=== PATIENT | female | born 1945 | race Caucasian/White ===

== ENCOUNTER 2017-04-04 16:30 | Inpatient (IN) | payer MEDICARE, OTHER ==
[~2017-04-04] VITALS: Ht 162.6 cm; Wt 76.4 kg
--- NOTE | ~2017-04-04 | HP ---
PATIENT'S NAME: BHASKAR HOLBROOK [facility] AGE: 71 Y [address] ROOM: [place] [address] LOCATION: [facility] ADMIT DATE: 04/04/2017 History & Physical DISCHARGE DATE: FAMILY PHYSICIAN: PHYSICIAN, UNKNOWN ATTENDING PHYSICIAN: Nacho BERNAL DATE OF SERVICE: CHIEF COMPLAINT: Right upper extremity weakness. HISTORY OF PRESENT ILLNESS: The patient is a 71-year-old female with past medical history of diabetes mellitus type 2, hypertension, and current tobacco use, who presents here from [place], [place] with CVA. The patient reports that around 10:30 this morning, she was watching TV when she suddenly felt her right hand to be numb. She also noticed that her hands were weak and could not grab items. She called her for help. Subsequently, she noticed right-sided facial weakness and numbness. The patient's saw her and suggested that they need to go to the emergency department. The patient reports that she stood up by herself and walked to the car and went to the emergency department. At the the emergency department, the patient was evaluated and had a CT of the head, that showed 6 mm focus of decreased density in the left frontal lobe and left external capsule suspicious for ischemic changes but age was indeterminate. It did not show any intracranial hemorrhage. Tele-neurology was consulted. Dr. Tubbs was on board. After the assessment, the patient was not a candidate for tPA and was transferred to our facility for further workup. The patient reports that the last time she was seen normal by her was 2:00 a.m. yesterday evening. MEDICAL HISTORY: 1. Diabetes mellitus type 2. 2. Hypertension. 3. Restless legs syndrome. 4. Hyperlipidemia. 5. Tobacco use. SURGICAL HISTORY: Cholecystectomy, appendectomy, tonsillectomy. FAMILY HISTORY: Dad has Alzheimer. Mother has heart disease. SOCIAL HISTORY: The patient is a current smoker since age 24. She denies drinking and PATIENT'S NAME: BHASKAR HOLBROOK [facility] AGE: 71 Y [address] 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 MEDICATIONS: Please see MAR and is currently being reconciled. REVIEW OF SYSTEMS: All systems have been reviewed and are negative except for what is mentioned in the HPI. PHYSICAL EXAMINATION: VITAL SIGNS: Temperature of 98 degree Fahrenheit, blood pressure of 168/80 with pulse 78, respiratory rate of 18, and saturating 95% on room air. GENERAL APPEARANCE: The patient is alert and awake, in no acute distress, lying on the bed surrounded by family member. HEAD: Normocephalic, atraumatic. EYES: Extraocular muscle intact. No peripheral visual deficits. NOSE: No nasal discharge. EARS: No ear discharge. ORAL CAVITY: Moist oral cavity. NECK: No JVD. No carotid bruits heard. CHEST: Clear to auscultation bilaterally. HEART: Regular rate and rhythm. No murmurs, rubs, or gallops heard. ABDOMEN: Soft, nontender, and nondistended. Bowel sounds present. SKIN: Warm to touch. MUSCULOSKELETAL: Range of motion intact. No obvious joint effusion noted. PLASTERING CONTRACTOR: The patient is alert and oriented x3. The patient has right-sided nasolabial fold flattening. Motor strength of right upper extremity 3/5. Motor strength in lower extremity bilateral 5/5. LABORATORY DATA: White blood cell count of 10, hemoglobin of 14, platelet of 220. Sodium of 130, potassium 4.2, creatinine of 1, and blood glucose of 24. This data was received from [facility]. EKG shows, this is also from outside hospital, sinus rhythm, normal axis, ventricular rate of 85 with PA of 132, and QTc of 19. No ischemic ST and T- wave changes. ASSESSMENT AND PLAN: 1. Acute ischemic CVA. The patient is a 71-year-old female with past medical history of hypertension, diabetes mellitus type 2, and tobacco use, who presents here with 6 mm focus left frontal lobe and left external capsule suspicion for ischemic stroke. The patient initially was seen by tele-neuro at [facility]. The patient was deemed not to be a tPA candidate due to therapeutic window and also positive CT head PATIENT'S NAME: BHASKAR HOLBROOK [facility] AGE: 71 Y [address] ROOM: [address] [place] [address] LOCATION: [facility] ADMIT DATE: 04/04/2017 History & Physical DISCHARGE DATE: FAMILY PHYSICIAN: PHYSICIAN, UNKNOWN ATTENDING PHYSICIAN: Nacho BERNAL suspicion to be stroke to be age indeterminate. We will admit the patient. We will acquire MRI brain without contrast, MRA brain without contrast, and we will acquire carotid Doppler bilateral. We will also acquire echocardiogram. The patient's initial NIH score is 4. We will have bedside swallow eval and also speech therapy. We will also have PT and OT see the patient during her stay. The patient has not gotten aspirin yet. We will start the patient on full-dose aspirin and 81 mg aspirin daily afterwards. Change home medication of simvastatin to full dose, Lipitor of 80 mg daily. We will keep the patient on telemonitor to further assess for arrhythmia. We will also re-consult Dr. Tubbs with tele-neuro. 2. Hypertension. We will hold medication as we will allow permissive hypertension for 24 hours. To treat blood pressure with labetalol as needed if systolic blood pressure is greater than 220 and diastolic blood pressure is greater than 120. 3. Hyperlipidemia. We will change the patient's statin regimen to high-dose Lipitor. 4. History of restless legs syndrome. We will continue Requip. 5. Diabetes mellitus type 2. We will acquire hemoglobin A1c. We will hold metformin for now. We will have the patient on sliding scale insulin. We will start the patient on diabetic diet. 6. Tobacco use. A long discussion made about tobacco cessation. Discussed greater than 3 minutes about tobacco cessation. Offered nicotine. The patient is currently not ready for cessation. We will add nicotine as needed for tobacco use. I have personally reviewed the patient's medical record including but not limited to blood work and radiology report. Total time spent with the patient is greater than 70 minutes, more than 50% of the time is spent in direct the patient's care and the patient's' consultation. Case was reviewed with the patient, nursing staff, and family member. Questions were answered to the patient's satisfaction. We will admit the patient for CVA, and we will have a stroke workup. Code status on admission is full code. GABE ROOT MD AD/modl /[id number] D: [id number] T: [id number] HISTORY & PHYSICAL
--- NOTE | ~2017-04-04 | ENPV ---
Carotid Duplex Study Demographics Patient Name BHASKAR HOLBROOK Date of Study 04/05/2017 Patient Number [id number] Gender Female Date of 1945 Age 71 Visit Number [id number] Height 61 Accession Number [id number] Weight 165 Referring Valerie Valenzuela MD Physician Physician Physician Ordering Physician Valerie Griffith Wind Turbine Service Technician Surgical Instrument Repair Specialist Juancarlos Azevedo BS, RT Conclusions Summary The right internal carotid artery has mild, 1-39%, plaque and stenosis. The left internal carotid artery has mild, 1-39%, plaque and stenosis. The right vertebral artery is present with antegrade flow. The left vertebral artery is present with antegrade flow. Calcific plaque at the bulb bilaterally. Procedure Type of Study: Cerebral:Carotid, Carotid Doppler Bilateral. Indications for Study:Stroke. Appropriate Use Criteria:9 Patient Status:Routine. Study Location:Inpatient Portable. Technical Quality:Adequate visualization. Velocities are measured in cm/s ; Diameters are measured in cm Carotid Right Measurements Carotid Left Measurements + +--------+--------+ + + + +--------+ --------+ + + !Location !PSV !EDV !Angle !%Stenosis ! !Location !PSV ! EDV !Angle !%Stenosis ! + +--------+--------+ + + + +--------+ --------+ + + !Prox CCA !72 !16 !60 ! ! !Prox CCA !72 ! 15 !60 ! ! + +--------+--------+ + + + +--------+ --------+ + + !Dist CCA !62 !17 !60 ! ! !Dist CCA !58 ! 15 !60 ! ! + +--------+--------+ + + + +--------+ --------+ + + !Prox ICA !64 !15 !60 ! ! !Prox ICA !52 ! 16 !60 ! ! + +--------+--------+ + + + +--------+ --------+ + + !Dist ICA !61 !22 !60 ! ! !Dist ICA !71 ! 25 !60 ! ! + +--------+--------+ + + + +--------+ --------+ + + !Prox ECA !69 ! !60 ! ! !Prox ECA !101 ! !60 ! ! + +--------+--------+ + + + +--------+ --------+ + + !Vertebral !32 ! !60 ! ! !Vertebral !50 ! !60 ! ! + +--------+--------+ + + + +--------+ --------+ + + !Subclavian !64 ! !60 ! ! !Subclavian !108 ! !60 ! ! + +--------+--------+ + + + +--------+ --------+ + + - There is antegrade vertebral flow noted on the right side. - There is antegrade verte bral flow noted on the left side. - Add'l Measurements:ICAPSV/CCAPSV 0.9.ICAEDV/CCAEDV 1.38. - Add'l Measurements:ICAPS V/CCAPSV 0.98.ICAEDV/CCAEDV 1.68. Signature dtt: Juan Fuller dtd: 04/05/17 0916 Physician Self Edit
--- NOTE | ~2017-04-04 | ECHO ---
Transthoracic Echocardiography Report (TTE) Demographics Patient Name BHASKAR HOLBROOK Date of Study 04/05/2017 Patient Number [id number] Visit Number [id number] Date of 1945 Room Number G6228 Accession Number [id number] Gender Female Age 71 year(s) Referring Valerie Griffith Forklift Supervisor Em Byrd RVT, Physician PERLA Physician Interpreting Deshawn Anand Inpatient Pharmacist Physician MD Supervising Ordering Physician Valerie Griffith MD/MLP Nurse Stress Gun Examiner Conclusions Contractility Score Summary Normal Left Ventricular contractility was noted. Summary The estimated left ventricular ejection fraction is 55% with normal WM and internal dimension.Definity used to better delineate endocardial borders.Mild concentric left ventricular hypertrophy. Mild mitral regurgitation by color Doppler. There is no evidence of patent foramen ovale or atrial septal defect by color Doppler. Bubble study was done, there is no evidence for a PFO or ASD. Mild MR. Aortic sclerosis. TDS. Procedure Type of Study TTE procedure:2D Echocardiogram, Echo with Contrast. Procedure Date Date: 04/05/2017 Start: 11:32 AM Study Location: Inpatient Portable Technical Quality: Fair due to poor acoustical window. Indications:CVA. Appropriate Use Criteria: 8 Patient Status: Routine Contrast Medium: Definity. Amount - 3 ml Rhythm: NSR HR: 86 bpm BP: 194/90 mmHg M-Mode/2D Measurements LV Diastolic Dimension: 4.69 cm LV Systolic Dimension: 4.05 cm LV Septum Diastolic: 1.25 cm LV PW Diastolic: 1.16 cm AO Root Dimension: 2.9 cm Cardiac Output: 5.93 l/min LA Dimension: 3.4 cm EF Estimated: 55 % LVOT: 2.3 cm LVOT VTI: 16.6 cm RV Base: 2.29 cm LV Stroke volume: 68.93 ml RV Length: 6.89 cm TAPSE: 1.88 cm TDI-S': 10.6 cm/s Doppler Measurements AV Peak Velocity: 1.55 m/s MV Peak E-Wave: 0.67 m/s AV Peak Gradient: 9.61 mmHg MV Peak A-Wave: 1.21 m/s AV Mean Gradient: 6 mmHg MV E/A Ratio: 0.55 LVOT Peak Velocity: 0.88 m/s MV P1/2t: 81 msec TR Gradient:9.24 mmHg PV Peak Velocity: 0.97 m/s Estimated RAP:5 mmHg PV Peak Gradient: 3.76 mmHg Estimated RVSP: 14 mmHg Estimated PASP: 14.24 mmHg E' Septal Velocity: 0.04 m/s A' Septal Velocity: 0.1 m/s E' Lateral Velocity: 0.06 m/s A' Lateral Velocity: 0.18 m/s Findings Left Ventricle Mild concentric left ventricular hypertrophy with normal EF,internal dimension and WM. Right Ventricle Normal right ventricle structure and function. Left Atrium The left atrium is normal. There is no evidence of patent foramen ovale or atrial septal defect by color Doppler. Bubble study was done, there is no evidence for a PFO or ASD. Right Atrium Normal right atrial size. IVC measures 1.35 cm with inspiratory collapse. Mitral Valve Mild mitral regurgitation by color Doppler. Aortic Valve The aortic valve is mildly sclerotic. Tricuspid Valve Normal tricuspid valve structure and function. Pulmonic Valve Normal pulmonic valve structure and function. Pericardial Effusion No evidence of pericardial effusion. Miscellaneous Visualized portions of the aortic root and ascending aorta appear normal in size. Pleural Effusion No evidence of pleural effusion. Contractility Score LV regional wall motion:(0-Non visualized 1-Normal 2-Hypokinesis 3-Akinesis 4-Dyskinesis 5-Aneurysm) Signature dtt: Kika Hess dtd: 04/05/17 1132 Physician Self Edit
--- NOTE | ~2017-04-04 | DS ---
PATIENT'S NAME: BHASKAR HOLBROOK [facility] AGE: 71 Y [address] ROOM: [place] [address] LOCATION: [facility] ADMIT DATE: 04/04/2017 Discharge Summary DISCHARGE DATE: 04/08/2017 FAMILY PHYSICIAN: Nidhi Saeed MD ATTENDING PHYSICIAN: Nacho BERNAL PRIMARY DIAGNOSES: 1. 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 2. Diabetes mellitus type 2. 3. Essential hypertension. 4. Dyslipidemia. OPERATIONS/PROCEDURES: MRI and MRA of the brain were performed 04/05/2017 demonstrating acute and/or subacute ischemic infarct in the left MCA territory and a small subcortical infarct in the right parietal lobe. Echocardiogram was obtained 04/05/2017 demonstrating an ejection fraction 55%. No evidence of PFO. Carotid Doppler ultrasounds were obtained 04/05/2017 demonstrating no significant stenosis. HISTORY OF PRESENT ILLNESS/REASON FOR ADMISSION: Please refer to the H and P dictated 04/04/2017. HOSPITAL COURSE: The patient was admitted to hospital as noted above with presumptive diagnosis of left MCA stroke symptoms. She was placed on the stroke pathway. She received aggressive antihyperlipidemic therapy with atorvastatin. Teleneurology was consulted. She was switched from aspirin to Plavix and tolerated that well. Her clinical symptoms improved. She had Physical Therapy, Occupational Therapy, and Speech Therapy evaluations. Physiatry also was consulted. Symptoms continued to improve and some consideration was given for inpatient rehab. By the end of the 4th day of her hospital stay, it was felt she would be stable enough for discharge home with outpatient physical therapy and plans for clinical followup with a primary care provider. DISCHARGE INSTRUCTIONS: DIET: Cardiac, prudent as tolerated. ACTIVITY: As tolerated. MEDICATIONS: 1. Atorvastatin 80 mg p.o. daily. 2. Plavix 75 mg p.o. daily. 3. Cardura 4 mg p.o. daily. PATIENT'S NAME: BHASKAR HOLBROOK [facility] AGE: 71 Y [address] ROOM: [place] [address] LOCATION: [facility] ADMIT DATE: 04/04/2017 Discharge Summary DISCHARGE DATE: 04/08/2017 FAMILY PHYSICIAN: Nidhi Saeed MD ATTENDING PHYSICIAN: Nacho BERNAL 4. Losartan 50 mg p.o. daily. 5. Fentanyl patch 25 mcg apply and change q.72 hours. 6. Gabapentin 600 mg p.o. q.4 hours p.r.n. dysesthesias. 7. Multivitamin daily. 8. Nicotine patch 21 mg apply and change daily. Do not smoke. 9. Oxycodone 5/325 one tab p.o. q.8 hours p.r.n. pain. 10. Clonidine 0.1 mg p.o. daily p.r.n. 11. [place] 5/325 one tab p.o. q.4 hours p.r.n. pain. 12. Flexeril 10 mg p.o. q.i.d. 13. Lasix 20 mg p.o. at bedtime. 14. Ropinirole 2 mg p.o. at bedtime. 15. Calcium carbonate 1 to 2 tabs p.o. b.i.d. p.r.n. 16. Metformin 2000 mg p.o. at bedtime. 17. Meclizine 25 mg p.o. q.6 hours p.r.n. dizziness. FOLLOWUP: She will follow up with Dr. Saeed on 04/14/2017. CONDITION ON DISCHARGE: Fair. Total time spent on discharge process 45 minutes. MD ELE KEITH/radha /[id number] d: 04/21/17 0354 t: 05/01/17 2359, DISCHARGE SUMMARY
--- NOTE | ~2017-04-04 | CON ---
PATIENT'S NAME: SHERLEY CERNA [facility] AGE: 71 Y [address] ROOM: [address] [address] LOCATION: [facility] ADMIT DATE: 04/04/2017 Consultation DISCHARGE DATE: FAMILY PHYSICIAN: PHYSICIAN, UNKNOWN ATTENDING PHYSICIAN: Nacho BERNAL DATE OF CONSULTATION: 04/05/2017 REFERRING PHYSICIAN: CHELSEA BUCKLEY MD REASON FOR CONSULTATION: Stroke. HISTORY OF PRESENT ILLNESS: Sherley Cerna is a 71-year-old woman with history of hypertension and hyperlipidemia, who presented with transient right arm and face weakness and slurred speech yesterday. She was found to have an ischemic stroke on her MRI. Her MRA was negative. A carotid and echocardiogram are pending. She was on aspirin prior to arrival. As per the patient, her symptoms have improved, and she is working with Therapy. Currently, her neurologic exam has improved since admission. PHYSICAL EXAMINATION: NEUROLOGICAL: She is awake, alert, and oriented. Her speech is fluent. There is no dysarthria. She is able to answer all questions correctly. She is able to follow commands. Her extraocular movements were intact. Her visual jordan were full. She had a slight flattening of her nasolabial fold on the right. On motor exam, she was 5/5 strength without any drift in any of her extremities. She did have some slowing in her rapid alternating movements in her right hand. Sensation was diminished on the right. There was no ataxia. There was no extinction. Her NIH Stroke Scale score was 2. ASSESSMENT AND PLAN: Ischemic stroke. Carotid and echocardiogram are pending. If these results do not show any acute or critical pathology, the patient is okay to be discharged on Plavix as well as her statin. She will need followup with Outpatient Neurology in 1 to 2 weeks after she is discharged. MD ZACK AGUILERA/radha PATIENT'S NAME: SHERLEY CERNA [facility] AGE: 71 Y [address] ROOM: [address] [place], [place] [address] LOCATION: [facility] ADMIT DATE: 04/04/2017 Consultation DISCHARGE DATE: FAMILY PHYSICIAN: BARRY LEON ATTENDING PHYSICIAN: Nacho BERNAL /[id number] d: 04/05/171957 t: 04/06/17 1325, CONSULTATION REPORT
--- NOTE | ~2017-04-04 | CON ---
PATIENT'S NAME: BHASKAR HOLBROOK [facility] AGE: 71 Y [address] ROOM: [place] [address] LOCATION: [facility] ADMIT DATE: 04/04/2017 Consultation DISCHARGE DATE: FAMILY PHYSICIAN: Nidhi Saeed MD ATTENDING PHYSICIAN: Nacho PADILLA REFERRING PHYSICIAN: CHELSEA BUCKLEY MD Consult for Dr. Padilla, hospitalist. This pleasant 71-year-old lady is referred for rehab evaluation, admitted on 04/04, transferred from [place], [place] for definitive care with sudden onset of right upper extremity weakness, right facial droop, and slight slurring of speech with right facial numbness of sudden onset also. PAST MEDICAL HISTORY: Past history of significance as follows, 1. Diabetes type 2. 2. Hypertension. 3. Restless legs syndrome. 4. Dyslipidemia. 5. Tobacco abuse. Now, she is alert and oriented. Voice is clear and not wet. No visual cut and/or neglect. She still has right facial weakness. No headaches. Tongue and soft palate however moving symmetrical. No visual cut at the present time. Vitals are as follows, Blood pressure 199/93, temperature 98.7, pulse 82 and regular, respiration rate is 16. She is 5 feet 4 inches tall and weighs 75.9 kg. No dizziness, no nystagmus. Denied any nausea. No swallowing difficulty. No fever, no shortness of breath, no chest pain, no other discomfort. No similar episodes in the past. Now, she is able to move her right upper extremity; however, distally she is weak and discoordinated, especially the hand movement and fingers. Deep tendon reflexes are present and equal throughout. Good bowel and bladder control. She is on the following medications, 1. Plavix. 2. Requip. 3. Neurontin. 4. Theragran-M. 5. Rogers. PATIENT'S NAME: BHASKAR HOLBROOK [facility] AGE: 71 Y [address] ROOM: [place] [address] LOCATION: [facility] ADMIT DATE: 04/04/2017 Consultation DISCHARGE DATE: FAMILY PHYSICIAN: Nidhi Saeed MD ATTENDING PHYSICIAN: Nacho PADILLA 6. Tums. 7. Fentanyl. 8. Glucagon. 9. Glucose. 10. Dextrose. 11. Insulin. 12. Insulin aspart, mild. 13. Labetalol. 14. Percocet. 15. NaCl 0.9%. 16. Lipitor. 17. Protonix. 18. Aspirin. 19. Gabapentin. ASSESSMENT AND PLAN: She can ambulate at least 150 with hand-held and close supervision; however, she has made very good recovery and she has been initiated on PT, OT, and Speech which I will continue. At the present time, I feel she has made good progress. If she continues like this, she in my opinion can go on outpatient basis and follow with her family physician which she likes to do so; however, if she does not do well, I am happy to take her for intensive rehabilitation for about 2 weeks. If she continues to do well, she can go on outpatient basis. I did explain all that to her in detail. She verbalized understanding and agreement. Thank you for this referral. However I have told her not to smoke and also not to drive until she is re-evaluated. She verbalized understanding and agreement. MD MILAN GARRETT/radha /[id number] d: 04/06/17 1421 t: 04/06/17 1444, CONSULTATION REPORT
[2017-04-04] MEDS ORDERED: CATAPRES0.1 MG PO (20:39)
[2017-04-04] MEDS ORDERED: LORTAB 5-325 M1 EACH PO (20:39)
[2017-04-04] MEDS ORDERED: DURAGESIC 25MC25 MCG TRANS (20:40)
[2017-04-04] MEDS ORDERED: FLEXERIL10 MG PO (20:40)
[2017-04-04] MEDS ORDERED: NEURONTIN600 MG PO (20:41)
[2017-04-04] MEDS ORDERED: LASIX20 MG PO (20:42)
[2017-04-04] MEDS ORDERED: REQUIP2 MG PO (20:42)
[2017-04-04] MEDS ORDERED: CARDURA4 MG PO (20:42)
[2017-04-04] MEDS ORDERED: COZAAR50 MG PO (20:43)
[2017-04-04] MEDS ORDERED: COZAAR100 MG PO (20:43)
[2017-04-04] MEDS ORDERED: THERAGRAN-M1 TAB PO (20:43)
[2017-04-04] MEDS ORDERED: TUMS REGULAR ST1 TAB PO (20:44)
[2017-04-04] MEDS ORDERED: ASPIRIN325 MG PO (20:44)
[2017-04-04] MEDS ORDERED: METFORMIN HCL1000 M1 PO (20:45)
[2017-04-04] MEDS ORDERED: MECLIZINE HCL25 M1 PO (20:45)
[2017-04-04] MEDS ORDERED: ZOCOR40 MG PO (20:45)
--- NOTE | 2017-04-05 02:05 | NUR ---
Patient was at home this morning (10 am [place] time) when she started to experience numbness in the right arm. She continued to watch T.V. for a bit and then decided to call her , told her she needed to go to the doctor. Patient called PCP and was told that she needed to go to the hospital. Arrived to the ER around 12:30 ([place] time) with right sided arm weakness, no right hand grasp, and right facial droop. R) pupils is 2mm and sluggish, L) is 3mm and brisk. A/Ox3. Follows commands. Mild slurred speech. CT done in [facility]. Patient arrived to the unit at 1815 per cart with Flight nurses. 2L of O2 per nasal cannula. 78-95%/2L-168/80-18-98.0-0/10. PIV in right AC. Received report from flight nurse Breonna.
--- NOTE | 2017-04-05 05:16 | NUR ---
Significant Event:Patient is alert and oriented x3. Follows commands. VSS. PERRLA. Generalized RENEE-scheduled percocet given at 0440. 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 Does have numbness to the right hand and right portion of face. No right hand grasp-does move hand at the wrist. R) arm drift. Mild slurred speech. R)facial droop.Sinus rhythm-does get SOB with activity. 2+ pulses-no edema. Keep SBP less than 220 and DBP less than 120. Room air to 2L to keep sats greater than 94%. Non-productive smokers cough. DM2-ADA diet-accu checks ACHS-mild sliding scale call MD if BS is greater than 180. Last BM 04/04-active x4. 1A gb/walker. PIV in left AC-sl'd. Follow up: Had EKG 04/04. 04/05 will have MRI/MRA of the brain not contrast.
--- NOTE | 2017-04-05 08:39 | NUR ---
CONSULT RECEIVED, PER ROUTINE STROKE ORDERS. IF APPROPRIATE, DIET EDUCATION WILL BE COMPLETED PRIOR TO DISMISSAL.
--- NOTE | 2017-04-05 11:41 | NUR ---
Reviewed Carlotta' chart and talked with nursing. Per her chart and records, she lives at home in [place], [place] with her who is a practice management consultant. She was at home getting around fine prior to coming into us. I tried to stop by and talk with her this morning but PT was working with her at [address] was working with her at 1040. I will stop back by and see her later las well as check with therapies to see what they recommend for her needs upon dismissal, home vs SWB for a short time. CM to continue to follow and assist.
--- NOTE | 2017-04-05 14:25 | NUR ---
Significant Event: A/O X3. R) facial droop. R) arm drift. Mild slur. PERRLA. Chronic N/T to bilateral feet, R) numbness to hand and cheek. VSS. No edema. 2+ pulses. Room air with sats in the mid 90s. LS clear and diminsihed. Diabetic diet. Accuchecks ACHS with SSI. No coverage needed. BS active X4. Voids per bathroom. No apparent skin issues. L) AC PIV SLL. FLushes with no complications. 1 assist with gaitbelt and walker. Scheduled pain medications given this shift. Awaiting results of tests at this time. Follow up:
--- NOTE | 2017-04-06 02:16 | NUR ---
Significant Event: Alert and Oriented x3. R) hand grasp weak. R) arm weaker than left but no drift. R) arm numb and tingling. R) facial droop and R) sided numbness. Mild slurring. PERRLA. NIHSS 4. Up 1A GBW. On tele SR. Blood pressure hyptertensive in SBP in 190s order to give meds if >220. RA lungs clear. Diabetic diet Accuchecks AC/HS mild scale. IV to L) AC SL. On scheduled percocet for pain has Fentanyl patch on L) upper back for chronic pain. Follow up:
--- NOTE | 2017-04-06 12:33 | NUR ---
Introduced self and CM role to Sherley, her and her brother who were all at bedside. Sherley tells me that she was living at home in [place], [place] getting around fine prior to all of this, and is planning on getting back there when she is able to do so. She tells me that she does all of her own medications at home, around 10 pills per day, she gets them filled at her local [place] [facility]. She tells me that her PCP is Dr.Lauri Mcgee out of [place] as well. Sherley plans on returning home and doing outpatient therapies as soon as doctors tell her she is ready to do so. states that he will be there as support to help her out and her brother is also near by if she should need anything. She is planning on going to stay with her daughter here in town for a few days post hospital stay so she can be close to her doctors here incase anything should go wrong. She plans on returning home middle of next week and then setting up her outpatient follow up appointments at [facility] at that time. If she needs a short supply of her medications filled, she will just have that done at the local [facility] pharmacy. Sherley and family deny any other questions, needs or concerns. CM to continue to follow and assist. Plan home with outpatient therapies.
--- NOTE | 2017-04-06 17:23 | NUR ---
Significant Event:VSS, restarted on Losartan 50mg. Pt A/O x 3, PEERL no facial droop noted, speech clear, continues with RUE weakness, no drift. RLE slightly weaker, therapist indicated she is stronger than yesterday. NIHSS 2. Pt reports hx of chronic pain of 3-4/10, scheduled meds given, Fentanyl patch to L upper back. IV to L AC SL. Continues with ACHS, mild scale, no coverage needed. Participated in therapies. Follow up: Possible DC to home 04/07 with therapies.
--- NOTE | 2017-04-07 05:14 | NUR ---
Significant Event: A&Ox3. NIHSS 2 due to Numbness to R) arm and R) side of face and weak hand grasp to R). Up 1A GBW. On tele SR. Runs hypertensive in 180s. RA lungs clear. Diabetic diet. Accuchecks AC&HS. IV to L) AC SL. Takes pills 1 at a time. On scheduled Percocet and has Fentanyl patch for chronic pain. Follow up: Home today
--- NOTE | 2017-04-07 17:21 | NUR ---
Significant Event:VSS, BP normalizing by 1500 assessments. Pt c/o occipital headache 06/15, [place] 1 tab at 0850, and scheduled meds given. Pt reported pain controlled / by midafternoon. R hand numbness, and slight difficulties picking up silverware. Worked with therapies. TIFFANY RAINES. Started on Metformin 1000mg BID. Refused Nicotine patch. Follow up:Possible DC to daughters' home tommorrow.
--- NOTE | 2017-04-08 01:34 | NUR ---
Significant Event: A/Ox3. VSS. Takes scheduled Percocet for pain which is scheduled again this am at 0415. ACHS accuchecks with s/s insulin and oral metformin. IV to L)AC flushes well and saline locked. Fentanyl patch remains in place to posterior left shoulder. Ambulates SBA with walker and gait belt. NIHSS 1 at this time. Follow up: Possibly dismissing today to [facility]
[2017-04-08] MEDS ORDERED: LIPITOR80 MG PO (11:38)
[2017-04-08] MEDS ORDERED: PLAVIX75 MG PO (11:38)
[2017-04-08] MEDS ORDERED: NICOTINE PATCH1 EAC1 TRANS (11:43)
--- NOTE | 2017-04-08 13:56 | NUR ---
Significant Event: a/o x 3. c/o chronic back pain and chronic diabetic nerve pain to bilateral feet. PRN percocet and fentanyl patch for pain management. New fentanyl patch placed on right upper back this aftn. NIHHS=1 for dullness of sensation right upper extremity. does have weak hand grasp to right hand with problems holding items but no drift with assmt. tele with NSR. accuchecks ac/hs. takes meds whole. ADA/cardiac diet. ambulates with walker/gait belt and SBA. Discharged to home. plans to stay at [facility] for a few days. left [facility] at 1315 per w/c accompanied by PEDIATRIC ORTHODONTIST. to be driven to [facility] per private vehicle driven by family member.
== END 2017-04-08 13:15 | disposition disaster alternative care site (69) | DRG 65 ==
LOC: GNTU 18:40
PROVIDERS: ADMIT Internal Medicine
PROC: F00ZJWZ Instrumental Swallowing and Oral Function Assessment using Swallowing Equipment (ICD-10-PCS; principal; 2017-04-04)
PROC: B246ZZZ Ultrasonography of Right and Left Heart (ICD-10-PCS; 2017-04-05)
DX: I63.512 Cerebral infarction due to unspecified occlusion or stenosis of left middle cerebral artery (principal); G81.91 Hemiplegia, unspecified affecting right dominant side; E11.65 Type 2 diabetes mellitus with hyperglycemia; I10 Essential (primary) hypertension; E78.5 Hyperlipidemia, unspecified; Z90.49 Acquired absence of other specified parts of digestive tract; G25.81 Restless legs syndrome; Z79.84 Long term (current) use of oral hypoglycemic drugs; R29.810 Facial weakness; Z71.6 Tobacco abuse counseling; F17.210 Nicotine dependence, cigarettes, uncomplicated
CPT/HCPCS: C8929; Q9957

== ENCOUNTER → 2017-04-04 | Outpatient (CLI) | payer MEDICARE, OTHER ==
[~2017-04-04] MED LIST: ASPIRIN325 MG PO; CARDURA4 MG PO; CATAPRES0.1 MG PO; COZAAR100 MG PO; COZAAR50 MG PO; DURAGESIC 25MC25 MCG TRANS; FLEXERIL10 MG PO; LASIX20 MG PO; LIPITOR80 MG PO; LORTAB 5-325 M1 EACH PO; MECLIZINE HCL25 M1 PO; METFORMIN HCL1000 M1 PO; NEURONTIN600 MG PO; NICOTINE PATCH1 EAC1 TRANS; PLAVIX75 MG PO; REQUIP2 MG PO; THERAGRAN-M1 TAB PO; TUMS REGULAR ST1 TAB PO; ZOCOR40 MG PO
== END | disposition disaster alternative care site (69) ==
LOC: GAIR 17:12
DX: I63.9 Cerebral infarction, unspecified (principal); E11.9 Type 2 diabetes mellitus without complications; E78.5 Hyperlipidemia, unspecified; I10 Essential (primary) hypertension; M54.9 Dorsalgia, unspecified; G43.909 Migraine, unspecified, not intractable, without status migrainosus; E11.40 Type 2 diabetes mellitus with diabetic neuropathy, unspecified; R20.0 Anesthesia of skin; R53.1 Weakness; R29.810 Facial weakness; R29.898 Other symptoms and signs involving the musculoskeletal system; R47.81 Slurred speech; Z79.84 Long term (current) use of oral hypoglycemic drugs; Z79.82 Long term (current) use of aspirin; Z79.891 Long term (current) use of opiate analgesic; Z79.899 Other long term (current) drug therapy; Z88.2 Allergy status to sulfonamides; Z88.0 Allergy status to penicillin; Z88.8 Allergy status to other drugs, medicaments and biological substances
CPT/HCPCS: A0422; A0431; A0436